=== PATIENT | male | born 1950 | race Caucasian/White ===

== ENCOUNTER 2016-10-25 04:28 | Emergency (ER) | payer MEDICARE, BC ==
[2016-10-25] MEDS ORDERED: Sodium Chloride 0.9% 500 ML IV SCH (04:45)
--- NOTE | 2016-10-25 04:46 | EDM.PDOC ---
ED HISTORY OF PRESENT ILLNESS - General Chief Complaint: Chest Pain Stated Complaint: CHEST PAINS, [id number] Time Seen by Provider: 10/25/16 04:41 Source of Information: Reports: Patient, Family () History Limitations: Reports: No limitations - History of Present Illness INITIAL COMMENTS - FREE TEXT/NARRATIVE: 65 yo white male w/ PMHx. CAHD s/p 7 stents c/o right sided chest pain /10 since Thu. (4 days). Pt. states he was seen by his PCP 3 days ago and the work- up negative. Symptom Onset Date: 10/22/16 Symptom Onset Time: 12:00 Timing/Duration: Reports: Waxing/waning Severity: mild Location, General: Reports: chest (right side lateral chest) Quality: Reports: Ache Improves with: Reports: Rest Worsens with: Reports: Movement Associated Symptoms (General): Reports: no other symptoms - Related Data Allergies/ADRs: Allergies Allergy/AdvReac Type Severity Reaction Status Date / Time No Known Allergies Allergy Verified 10/25/16 04:41 Home Meds: Home Meds Aspirin [Halfprin] 81 mg PO DAILY 06/02/14 [History] Clindamycin Phosphate [Clindamycin Phosphate] 1 percent TOP TID 06/02/14 [ History] Colesevelam [Welchol] 325 mg PO BID 06/02/14 [History] Ezetimibe [Zetia] 10 mg PO DAILY 06/02/14 [History] Multivitamin [Multi Vitamin Daily] 1 each PO DAILY 06/02/14 [History] Pantoprazole Sodium [Pantoprazole Sodium] 40 mg PO DAILY PRN 06/02/14 [History] glyBURIDE [Glyburide] 5 mg PO DAILY 06/02/14 [History] metFORMIN [Glucophage] 500 mg PO BID 06/02/14 [History] Past Medical History Cardiovascular History: Reports: High cholesterol, Stents - Past Surgical History GI Surgical History: Reports: Hernia repair/other Social & Family History - Tobacco Use Smoking Status *Q: Never Smoker - Alcohol Use Days Per Week of Alcohol Use: 1 Number of Drinks Per Day: 1 Total Drinks Per Week: 1 - Recreational Drug Use Recreational Drug Use: No Drug Use in Last 12 Months: No ED ROS GENERAL - Review of Systems Review Of Systems: See Below HEENT: Reports: No symptoms Respiratory: Reports: No Symptoms Cardiovascular: Reports: No symptoms Endocrine: Reports: no symptoms GI/Abdominal: Reports: No symptoms : Reports: no symptoms Musculoskeletal: Reports: no symptoms Skin: Reports: no symptoms Neurological: Reports: No Symptoms Psychiatric: Reports: No symptoms Hematologic/Lymphatic: Reports: no symptoms Immunologic: Reports: no symptoms ED EXAM, GENERAL - Physical Exam Exam: See Below Exam Limited By: No limitations General Appearance: alert, WD/WN Eye Exam: bilateral eye: PERRL Ears: normal external exam Nose: normal inspection Throat/Mouth: Normal inspection, Normal voice Head: atraumatic Neck: normal inspection Respiratory/Chest: no respiratory distress, lungs clear Cardiovascular: normal peripheral pulses, regular rate, rhythm, no edema, no murmur Peripheral Pulses: 2+: carotid (L), carotid (R) GI/Abdominal: normal bowel sounds, soft, non tender Back Exam: normal inspection, full range of motion Extremities: normal inspection, normal range of motion Neurological: alert, oriented, CN II-XII intact Psychiatric: normal affect, normal mood Skin Exam: Warm, Dry, Intact Course - Vital Signs Last Recorded V/S: Last Vital Signs Temp 35.9 C 10/25/16 05:19 Pulse 68 10/25/16 05:19 Resp 15 10/25/16 05:19 BP 124/77 10/25/16 05:19 Pulse Ox 92 L 10/25/16 05:19 - Orders/Labs/Meds Orders: Active Orders 24 hr Category Date Time Status EKG 12 Lead [EKG Documentation Completion] [RC] URGENT Care 10/25/16 04:37 Active Chest 1V Frontal [CR] Urgent Exams 10/25/16 04:43 Ordered GI Cocktail Med 10/25/16 05:27 Once 30 ml PO ONETIME ONE Sodium Chloride 0.9% [Normal Saline] 500 ml Med 10/25/16 04:45 Active IV ASDIRECTED Medication Orders Al Hydroxide/Mg Hydroxide (Gi Cocktail) 30 ml PO ONETIME ONE Stop: 10/25/16 05:28 Sodium Chloride (Normal Saline) 500 mls @ 100 mls/hr IV ASDIRECTED STEVE Last Admin: 10/25/16 05:01 Dose: 100 mls/hr Labs: Laboratory Tests 10/25/16 10/25/16 Range/Units 04:50 04:50 WBC 9.1 (5.0-10.0) 10^3/uL RBC 4.73 (4.6-6.2) 10^6/uL Hgb 14.5 (14.0-18.0) g/dL Hct 41.9 (40.0-54.0) % MCV 88.6 (80-100) fL MCH 30.7 (27.0-34.0) pg MCHC 34.6 (33.0-35.0) g/dL Plt Count 173 (150-450) 10^3/uL Neut % (Auto) 64.2 (42.2-75.2) % Lymph % (Auto) 22.3 (20.5-50.1) % Graves % (Auto) 9.4 H (2-8) % Eos % (Auto) 3.9 H (1.0-3.0) % Baso % (Auto) 0.2 (0.0-1.0) % Sodium 134 L (135-145) mmol/L Potassium 3.8 (3.6-5.0) mmol/L Chloride 102 (101-111) mmol/L Carbon Dioxide 22.0 (21.0-31.0) mmol/L Anion Gap 13.8 BUN 16 (7-18) mg/dL Creatinine 0.9 (0.6-1.3) mg/dL Est Cr Clr Drug Dosing 84.49 mL/min Estimated GFR (MDRD) > 60 BUN/Creatinine Ratio 17.77 Glucose 243 H (74-105) mg/dL Calcium 8.8 (8.4-10.2) mg/dl Total Bilirubin 0.6 (0.2-1.0) mg/dL AST 15 (10-42) IU/L ALT 22 (10-60) IU/L Alkaline Phosphatase 71 (42-121) IU/L Troponin I < 0.02 (0.00-0.02) ng/ml Total Protein 6.6 L (6.7-8.2) g/dl Albumin 3.7 (3.2-5.5) g/dl Globulin 2.9 Albumin/Globulin Ratio 1.28 Meds: Medications Generic Name Dose Route Start Last Admin Trade Name Freq PRN Reason Stop Dose Admin Al Hydroxide/Mg Hydroxide 30 ml 10/25/16 05:27 Gi Cocktail PO 10/25/16 05:28 ONETIME ONE Sodium Chloride 500 mls @ 100 mls/hr 10/25/16 04:45 10/25/16 05:01 Normal Saline IV 100 mls/hr ASDIRECTED STEVE Administration Departure - Departure Time of Disposition: 05:25 Disposition: Home, Self-Care 01 Condition: good Clinical Impression: Non-cardiac chest pain, Flatulence/gas pain/belching Hyperglycemia due to type 2 diabetes mellitus Qualifiers: Diabetes mellitus rat exterminator insulin use: without rat exterminator use Qualified Code(s ): E11.65 - Type 2 diabetes mellitus with hyperglycemia Forms: ED Department Discharge Additional Instructions: rest Increase ntake of fluids ( Juice / Water) F/U w/ PCP - My Orders Last 24 Hours: My Active Orders 10/25/16 04:37 EKG 12 Lead [EKG Documentation Completion] [RC] URGENT 10/25/16 04:43 Chest 1V Frontal [CR] Urgent 10/25/16 04:45 Sodium Chloride 0.9% [Normal Saline] 500 ml IV ASDIRECTED 10/25/16 05:27 GI Cocktail 30 ml PO ONETIME ONE - Assessment/Plan Last 24 Hours: My Active Orders 10/25/16 04:37 EKG 12 Lead [EKG Documentation Completion] [RC] URGENT 10/25/16 04:43 Chest 1V Frontal [CR] Urgent 10/25/16 04:45 Sodium Chloride 0.9% [Normal Saline] 500 ml IV ASDIRECTED 10/25/16 05:27 GI Cocktail 30 ml PO ONETIME ONE
[2016-10-25 05:15] LABS: CHLORIDE,CL 102 mmol/L (101-111); SODIUM,NA 134 mmol/L (135-145)
[2016-10-25 05:20] VITALS: BP 124/77
[2016-10-25] MEDS ORDERED: GI Cocktail Oral Solution 30 ML PO ONE (05:27)
--- NOTE | 2016-11-17 13:35 | EKG ---
10/25/2016- SHANEL CASE - This is a 12-lead standard EKG showing normal sinus rhythm with a heart rate of 67 beats per minute. 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 Normal [place] interval. Normal QRS duration. [facility] /[id number] MTDD
== END 2016-10-25 05:51 | disposition home or self-care (01) ==
LOC: DL.ED 04:28
DX: R07.89 Other chest pain (principal); E11.65 Type 2 diabetes mellitus with hyperglycemia; R14.3 Flatulence; R14.1 Gas pain; R14.2 Eructation; E78.00 Pure hypercholesterolemia, unspecified; Z79.82 Long term (current) use of aspirin; Z79.84 Long term (current) use of oral hypoglycemic drugs; Z79.899 Other long term (current) drug therapy
CPT/HCPCS: 36415; 71010; 80053; 84484; 85025; 93005; 96365; 99285; A9270; J7040; 99283

== ENCOUNTER 2020-09-17 14:58 | Emergency (ER) | payer MEDICARE, BC ==
[2020-09-17 15:20] VITALS: BP 149/89; PULSE 78
--- NOTE | 2020-09-17 15:40 | CR ---
EXAMINATION: Abdomen 4V AP Flat/Upright SEX: Male AGE: 69 years CLINICAL HISTORY: 69-year-old male complaining of abdominal pain and constipation. INTERPRETATION: Some stool scattered along the course of the normal caliber colon and concentrated rectal vault. No foreign body, abdominal soft tissue mass or pathologic calcifications. No sign of mechanical large or small bowel obstruction. No free subdiaphragmatic air. Lung bases are clear. Disc disease thoracolumbar spine. AP lumbar spine, pelvis and hips unremarkable. CONCLUSION: Obstipation. Plain film exam abdomen otherwise unremarkable.
[2020-09-17] MEDS ORDERED: Bisacodyl 5 MG Tab PO ONE (15:56)
[2020-09-17] MEDS ORDERED: Lactulose Soln 10 GM/15 ML 30 ML UD Cup PO ONE (15:57)
--- NOTE | 2020-09-17 17:41 | EDM.PDOC ---
Scribed by Claire Potts 09/17/20 1630 for Leroy Coronado MD ED HPI GENERAL MEDICAL PROBLEM - General Chief Complaint: Abdominal Pain Stated Complaint: ABDOMINAL PAIN,CONSTIPATED Time Seen by Provider: 09/17/20 15:20 Source of Information: Reports: Patient, RN, RN Notes Reviewed History Limitations: Reports: No Limitations - History of Present Illness INITIAL COMMENTS - FREE TEXT/NARRATIVE: Patient presents to ED by POV for constipation. He hasn't taken any OTC's, says last bowel movement was yesterday but was hard and small. Did have knee surgery a week ago but says didn't take any pain medications. Usually doesn't have constipation problems. He denies abdominal distention. Has strong urge to have a BM, but after 2 hours of straining he could not go. Onset: Today Duration: Getting Worse Location: Reports: Abdomen Quality: Reports: Ache Severity: Moderate Improves with: Reports: None Worsens with: Reports: None Associated Symptoms: Reports: No Other Symptoms - Related Data Allergies Allergy/AdvReac Type Severity Reaction Status Date / Time No Known Allergies Allergy Verified 10/25/16 04:41 Home Meds: Home Meds Aspirin [Halfprin] 81 mg PO DAILY 06/02/14 [History] Clindamycin Phosphate 1 percent TOP TID 06/02/14 [History] Colesevelam [Welchol] 325 mg PO BID 06/02/14 [History] Ezetimibe [Zetia] 10 mg PO DAILY 06/02/14 [History] Multivitamin [Multi Vitamin Daily] 1 each PO DAILY 06/02/14 [History] Pantoprazole Sodium 40 mg PO DAILY PRN 06/02/14 [History] glyBURIDE [Glyburide] 5 mg PO DAILY 06/02/14 [History] metFORMIN [Glucophage] 500 mg PO BID 06/02/14 [History] Past Medical History Cardiovascular History: Reports: High Cholesterol, Stents Gastrointestinal History: Reports: GERD Musculoskeletal History: Reports: Osteoarthritis Endocrine/Metabolic History: Reports: Diabetes, Type II - Past Surgical History GI Surgical History: Reports: Hernia Repair/Other Social & Family History - Family History Family Medical History: No Pertinent Family History - Caffeine Use Caffeine Use: Reports: Coffee - Living Situation & Occupation Occupation: Retired ED ROS GENERAL - Review of Systems Review Of Systems: Comprehensive ROS is negative, except as noted in HPI. ED EXAM, GI/ABD - Physical Exam Exam: See Below Exam Limited By: No Limitations General Appearance: Alert, No Apparent Distress Eyes: Bilateral: Normal Appearance Nose: Normal Inspection Throat/Mouth: Normal Inspection, Normal Lips, Normal Voice, No Airway Compromise Head: Atraumatic, Normocephalic Neck: Normal Inspection, Supple, Non-Tender, Full Range of Motion Respiratory/Chest: No Respiratory Distress, Lungs Clear, Normal Breath Sounds, No Accessory Muscle Use, Chest Non-Tender Cardiovascular: Regular Rate, Rhythm GI/Abdominal Exam: Normal Bowel Sounds, Soft, No Organomegaly, No Distention, Tender (Mild generalized tenderness). No: Rigid, Rebound Back Exam: Normal Inspection Extremities: Normal Inspection, Other (Pt did not want his postoperative knee e xamined.) Neurological: Alert, Oriented, No Motor/Sensory Deficits Psychiatric: Anxious, Flat Affect Skin Exam: Warm, Dry, Intact, Normal Color, No Rash Course - Vital Signs Last Recorded V/S: Last Vital Signs Temp 97.2 F 09/17/20 15:14 Pulse 78 09/17/20 15:14 Resp 16 09/17/20 15:14 BP 149/89 H 09/17/20 15:14 Pulse Ox 99 09/17/20 15:14 - Orders/Labs/Meds Orders: Active Orders 24 hr Category Date Time Status Enema [RC] ASDIRECTED Care 09/17/20 15:57 Active Meds: Medications Discontinued Medications Generic Name Dose Route Start Last Admin Trade Name Freq PRN Reason Stop Dose Admin Bisacodyl 10 mg 09/17/20 15:56 Dulcolax PO 09/17/20 15:57 ONETIME ONE Lactulose 30 gm 09/17/20 15:57 Cephulac PO 09/17/20 15:58 ONETIME ONE Departure - Departure Time of Disposition: 17:38 Disposition: Home, Self-Care 01 Condition: Good Clinical Impression: Constipation Qualifiers: Constipation type: other constipation type Qualified Code(s): K59.09 - Other constipation - Discharge Information *PRESCRIPTION DRUG MONITORING PROGRAM REVIEWED*: Not Applicable *COPY OF PRESCRIPTION DRUG MONITORING REPORT IN PATIENT LETICIA: Not Applicable Instructions: Constipation, Adult Forms: ED Department Discharge Additional Instructions: Drink plenty of water. Eat fresh fruits, vegetables, and prunes. Use an over the counter stool softener, Metamucil, or Citrucel as needed. Follow up with your primary clinic if any further problems. Sepsis Event Note (ED) - Evaluation Sepsis Screening Result: No Definite Risk - Focused Exam Vital Signs: Vital Signs Temp Pulse Resp BP Pulse Ox 09/17/20 15:14 97.2 F 78 16 149/89 H 99 - My Orders Last 24 Hours: My Active Orders 09/17/20 15:57 Enema [RC] ASDIRECTED - Assessment/Plan Last 24 Hours: My Active Orders 09/17/20 15:57 Enema [RC] ASDIRECTED I have read and agree with the documentation that has been completed regarding this visit. By signing this record, I attest that the documentation was completed in my physical presence and is an accurate record of the encounter.
== END 2020-09-17 17:58 | disposition home or self-care (01) ==
LOC: DL.ED 14:58
DX: K59.09 Other constipation (principal); K21.9 Gastro-esophageal reflux disease without esophagitis; M19.90 Unspecified osteoarthritis, unspecified site; E11.9 Type 2 diabetes mellitus without complications; Z79.84 Long term (current) use of oral hypoglycemic drugs; Z79.899 Other long term (current) drug therapy; Z79.82 Long term (current) use of aspirin
CPT/HCPCS: 74019; 99283; A9270

== ENCOUNTER 2021-09-24 12:34 | Emergency (ER) | payer MEDICARE, BC ==
[2021-09-24 12:49] VITALS: BP 143/72; PULSE 56
[2021-09-24] MEDS ORDERED: Aspirin 81 MG Tab.Chew PO ONE (12:49)
[2021-09-24] MEDS ORDERED: Sodium Chloride 0.9% 10 ML Syringe FLUSH PRN (12:49)
[2021-09-24 13:24] LABS: PTT,PARTIAL THROMBOPLSTIN TIME 20.9 SEC (22.0-34.0)
[2021-09-24 13:28] LABS: CHLORIDE,CL 104 mmol/L (98-107); SODIUM,NA 140 mmol/L (136-145)
== END 2021-09-24 15:25 | disposition home or self-care (01) ==
LOC: DL.ED 12:34
DX: R07.9 Chest pain, unspecified (principal); K21.9 Gastro-esophageal reflux disease without esophagitis; E78.00 Pure hypercholesterolemia, unspecified; E11.9 Type 2 diabetes mellitus without complications; Z95.5 Presence of coronary angioplasty implant and graft; Z88.0 Allergy status to penicillin; Z88.8 Allergy status to other drugs, medicaments and biological substances; Z79.82 Long term (current) use of aspirin; Z79.02 Long term (current) use of antithrombotics/antiplatelets; Z79.84 Long term (current) use of oral hypoglycemic drugs; Z79.899 Other long term (current) drug therapy
CPT/HCPCS: 36415; 71045; 80053; 82150; 83880; 84484; 85025; 85379; 85610; 85730; 93005; 99285; A9270

== ENCOUNTER 2022-10-20 13:35 | Emergency (ER) | payer MEDICARE, BC ==
[2022-10-20] MEDS ORDERED: Sodium Chloride 0.9% 10 ML Syringe FLUSH PRN (13:38)
[2022-10-20 14:14] LABS: PTT,PARTIAL THROMBOPLSTIN TIME 24.8 SEC (22.0-34.0)
[2022-10-20 15:13] LABS: CORONAVIRUS COVID-19 NAA NEGATIVE (NEGATIVE)
[2022-10-20 16:52] VITALS: BP 149/87; PULSE 55
== END 2022-10-20 16:49 | disposition home or self-care (01) ==
LOC: DL.ED 13:35
DX: R07.89 Other chest pain (principal); E11.9 Type 2 diabetes mellitus without complications; E66.9 Obesity, unspecified; Z68.35 Body mass index [BMI] 35.0-35.9, adult; Z91.010 Allergy to peanuts; Z88.0 Allergy status to penicillin; Z88.6 Allergy status to analgesic agent; Z91.018 Allergy to other foods; Z79.82 Long term (current) use of aspirin; Z79.899 Other long term (current) drug therapy; Z79.4 Long term (current) use of insulin; Z20.822 Contact with and (suspected) exposure to COVID-19
CPT/HCPCS: 0240U; 36415; 71045; 80053; 83735; 84484; 85025; 85610; 85730; 93005; 99285; 93010; 99284

== ENCOUNTER 2022-12-09 20:30 | Emergency (ER) | payer MEDICARE, BC ==
[2022-12-09 21:04] VITALS: BP 138/85; PULSE 50
[2022-12-09 21:19] LABS: BASOPHILS PERCENT AUTO 0.4 % (0.0-1.0); EOSINOPHILS PERCENT AUTO 3.7 % (1.0-3.0); HEMATOCRIT 40.8 % (40.0-54.0); LYMPHOCYTES PERCENT AUTO 35.6 % (20.5-50.1); MEAN CORPUSCULAR HEMOGLOBIN 30.9 pg (27.0-34.0); MEAN CORPUSCULAR HGB CONC 34.3 g/dL (33.0-35.0); MEAN CORPUSCULAR VOLUME 90.1 fL (80-100); MONOCYTES PERCENT AUTO 8.4 % (2-8); NEUTROPHILS PERCENT AUTO 51.9 % (42.2-75.2); PLATELET COUNT,PLT 216 10^3/uL (150-450); RED BLOOD CELL COUNT 4.53 10^6/uL (4.6-6.2); WHITE BLOOD CELL COUNT,WBC 7.8 10^3/uL (5.0-10.0)
[2022-12-09 21:30] LABS: A/G RATIO 1.2; ALBUMIN 3.4 g/dL (3.4-5.0); ANION GAP 12.9 mEq/L (7-13); BILIRUBIN TOTAL 0.3 mg/dL (0.2-1.0); CALCIUM 8.7 mg/dL (8.5-10.1); CREATININE 1.07 mg/dL (0.70-1.30); EST CRCL DRUG DOSING (CG) 65.38 mL/min; POTASSIUM,K 3.9 mmol/L (3.5-5.1); PROTEIN TOTAL,TP 6.2 g/dL (6.4-8.2)
[2022-12-09 21:44] LABS: INR 0.9 (0.9-1.2); PROTHROMBIN TIME 8.9 SEC (9.0-12.0)
== END 2022-12-09 23:30 ==
LOC: DL.ED 20:30
DX: I24.9 Acute ischemic heart disease, unspecified (principal); E11.9 Type 2 diabetes mellitus without complications; E66.9 Obesity, unspecified; Z68.35 Body mass index [BMI] 35.0-35.9, adult; Z91.010 Allergy to peanuts; Z88.0 Allergy status to penicillin; Z88.8 Allergy status to other drugs, medicaments and biological substances; Z91.018 Allergy to other foods; Z79.82 Long term (current) use of aspirin; Z79.4 Long term (current) use of insulin; Z79.02 Long term (current) use of antithrombotics/antiplatelets
CPT/HCPCS: 36415; 71046; 80053; 84484; 85025; 85610; 93005; 99291